=== PATIENT | female | born 1965 | race American Indian/Alaskan Native ===

== ENCOUNTER 2017-02-26 11:11 | Inpatient (IN) | payer MEDICAID ==
[2017-02-26 11:14] VITALS: BMI 23.3
--- NOTE | 2017-02-26 11:52 | C.PDOC ---
History Of Present Illness 51-year-old female, presents to the emergency department, pre-screened for detox from alcohol and crack. Patient denies any physical complaints at this time. Time Seen by Provider: 02/26/17 11:49 Chief Complaint (Nursing): Substance Abuse History Per: Patient History/Exam Limitations: no limitations Onset/Duration Of Symptoms: Days Current Symptoms Are (Timing): Still Present Past Medical History Reviewed: Historical Data, Nursing Documentation, Vital Signs Vital Signs: Last Vital Signs Temp 98.1 F 02/28/17 09:00 Pulse 86 02/28/17 09:00 Resp 18 02/28/17 09:00 BP 150/98 H 02/28/17 09:00 Pulse Ox 100 02/28/17 09:00 - Medical History PMH: HIV, HTN Denies: Diabetes, Hepatitis, Seizures, Sexually Transmitted Disease - [facility] Procedures DETOXIFICATION SERVICES FOR SUBSTANCE ABUSE TREATMENT (03/13/16) GROUP PSYCHOTHERAPY (03/13/16) Family History: States: Unknown Family Hx - Social History Hx Tobacco Use: Yes Hx Alcohol Use: Yes Hx Substance Use: Yes (cocaine) - Immunization History Hx Tetanus Toxoid Vaccination: No Hx Influenza Vaccination: No Hx Pneumococcal Vaccination: Yes Review Of Systems Except As Marked, All Systems Reviewed And Found Negative. Constitutional: Negative for: Fever, Chills Cardiovascular: Negative for: Chest Pain, Palpitations Respiratory: Negative for: Shortness of Breath Gastrointestinal: Negative for: Vomiting Physical Exam - Physical Exam Appears: Non-toxic, No Acute Distress Skin: Warm, Dry, No Rash Head: Atraumatic, Normacephalic Eye(s): bilateral: Normal Inspection Nose: Normal Oral Mucosa: Moist Lips: Normal Appearing Neck: Normal ROM Cardiovascular: Rhythm Regular Respiratory: Normal Breath Sounds, No Accessory Muscle Use Extremity: Normal ROM Neurological/Psych: Oriented x3, Normal Speech ED Course And Treatment - Laboratory Results Result Diagrams: 02/26/17 12:08 02/26/17 12:08 O2 Sat by Pulse Oximetry: 100 Disposition Counseled Patient/Family Regarding: Studies Performed, Diagnosis - Disposition Disposition: HOSPITALIZED Disposition Time: 13:09 Condition: GUARDED - Clinical Impression Clinical Impression: Drug dependence, Drug abuse - Scribe Statement The provider has reviewed the documentation as recorded by the Tamanna Hitchcock Provider Attestation: All medical record entries made by the Tamanna were at my direction and personally dictated by me. I have reviewed the chart and agree that the record accurately reflects my personal performance of the history, physical exam, medical decision making, and the department course for this patient. I have also personally directed, reviewed, and agree with the discharge instructions and disposition. Decision To Admit - Pt Status Changed To: Hospital Disposition Of: Inpatient - Admit Certification Admit to Inpatient:: After my assessment, the patient will require hospitalization for at least two midnights. This is because of the severity of symptoms shown, intensity of services needed, and/or the medical risk in this patient being treated as an outpatient. - InPatient: Physician Admission Certification: I certify that this patient requires 2 or more midnights of care for the following reason:: needs inpatient detox - . Bed Request Type: Detox Patient Diagnosis: Drug dependence, Drug abuse
[2017-02-26 12:16] LABS: BASO # 0.1 K/uL (0.0-0.2); BASO % 1.9 % (0.0-2.0); EOS % 0.5 % (0.0-4.0); HEMATOCRIT 39.5 % (34.0-47.0); LYMPH # 1.8 K/uL (1.0-4.3); LYMPH % 37.3 % (20.0-40.0); MEAN CELL VOLUME 84.5 fL (81.0-99.0); MEAN CORPUSCULAR HEMOGLOBIN 27.3 pg (27.0-31.0); MEAN CORPUSCULAR HGB CONC 32.3 g/dL (33.0-37.0); MEAN PLATELET VOLUME 10.9 fL (7.2-11.7); MONO # 0.4 K/uL (0.0-0.8); MONO % 7.9 % (0.0-10.0); RED CELL DISTRIBUTION WIDTH 13.1 % (11.5-14.5); WHITE BLOOD COUNT 4.8 K/uL (4.8-10.8)
[2017-02-26 12:21] LABS: URINE BILIRUBIN NEGATIVE (NEGATIVE); URINE BLOOD 1+ (NEGATIVE); URINE COLOR Colorless (YELLOW); URINE GLUCOSE (UA) NORMAL (Normal); URINE KETONE NEGATIVE (NEGATIVE); URINE LEUKOCYTE ESTERASE NEG Leu/uL (Negative); URINE PROTEIN NEGATIVE (NEGATIVE); URINE UROBILINOGEN NORMAL mg/dL (0.2-1.0)
[2017-02-26 12:22] LABS: CHLORIDE 103 mmol/L (98-107); POTASSIUM 3.2 mmol/L (3.6-5.2); SODIUM 144 mmol/L (132-148)
[2017-02-26 12:24] LABS: BILIRUBIN,TOTAL 0.4 mg/dL (0.2-1.3); CARBON DIOXIDE 22 mmol/L (22-30); GFR AFRICAN-AMERICAN > 60
[2017-02-26 12:25] LABS: ALB/GLOB RATIO 1.4 (1.0-2.1); ALKALINE PHOSPHATASE 109 U/L (38-126); ALT/SGPT 107 U/L (9-52); AST/SGOT 94 U/L (14-36); BLOOD UREA NITROGEN 13 mg/dL (7-17); CALCIUM 8.8 mg/dl (8.6-10.4); GLUCOSE,RANDOM 134 mg/dL (65-105); TOTAL PROTEIN 7.5 g/dL (6.3-8.3)
[2017-02-26 12:26] LABS: ALCOHOL SERUM 98 mg/dl (0-10)
[2017-02-26 12:28] LABS: RBC URINE 1 /hpf (0-3)
[2017-02-26] MEDS ORDERED: Potassium Chloride 20 mEq ER Tab PO STA (14:14)
[2017-02-26] MEDS: Multiple Vitamins Tab PO SCH (14:57)
[2017-02-26] MEDS: COMPLERA PO SCH (18:22)
[2017-02-27] MEDS: Multiple Vitamins Tab PO SCH (09:15)
[2017-02-27] MEDS: COMPLERA PO SCH (09:16)
[2017-02-27] MEDS ORDERED: Potassium Chloride 20 mEq ER Tab PO ONE (10:43)
[2017-02-27 13:04] VITALS: RESP 18
--- NOTE | 2017-02-27 15:30 | PCM.PSYCH ---
Initial Psychiatric Evaluation - Initial Psychiatric Evaluation Type of Admission: Voluntary Legal Status: Capacity Chief Complaint (in patient's own words): "Drinking problem and stress" Patient's Reaction to Hospitalization: Positive History of Present Illness and Precipitating Events: This is a 51 year old female. She is single and has 2 children , 9 and 13 years old. Currenlty, the patient is living with the father and the children. She is unemployed and supports herself through social security income. Patient reports an addiction to alcohol that has been going on and off since before 2002. Currently , she drinks 2 shots of Smirnoff a day with 2 to 3 beers a day as well. She admits to doing crack cocaine every other day and smokes 1 pack of cigarettes a day. This is currently her third time in detox unit. She has not been to rehab in the past. Her longest sobriety period was from 2002 to 2014. In 2009, she was given morphine due to migraine pain. This incident opened up her addiction. She entered a methadone program from 2009 to 2014, but was kicked out of the program. Patient does not recall reason. She started to drink heavily again thereafter. Her current plan is to attend a short term in patient program and to return home and be with her son for his surgery in April. Past Psych Hx: Depression, anxiety Fam Psych Hx: None Fam Drug Hx: Mother abuses alcohol, sister and brother drink heavily and do cocaine, older sister of heroin overdose PMH: hypertension Current Medications: Active Medications Generic Name Dose Route Start Last Admin Trade Name Freq PRN Reason Stop Dose Admin Clonidine HCl 0.1 mg 02/26/17 13:38 02/27/17 10:26 Catapres PO 0.1 mg Q4H PRN Administration Symptoms of alcohol withdrawl Folic Acid 1 mg 02/26/17 13:45 02/27/17 09:15 Folic Acid PO 1 mg DAILY ALEKSANDAR Administration Gabapentin 100 mg 02/26/17 14:00 02/27/17 13:23 Neurontin PO Not Given TID ALEKSANDAR Home Med 1 tab 02/26/17 16:00 02/27/17 09:16 Patient's Own Medication PO 1 tab DAILY ALEKSANDAR Administration Hydroxyzine HCl 25 mg 02/26/17 13:40 Atarax PO Q4H PRN Anxiety Ibuprofen 600 mg 02/26/17 13:40 Motrin Tab PO Q6H PRN Pain, moderate (4-7) Lorazepam 1 mg 02/26/17 13:38 Ativan PO Q4H PRN Symptoms of alcohol withdrawl Lorazepam 2 mg 02/26/17 13:45 02/27/17 13:22 Ativan PO 03/02/17 13:44 Not Given Q8H ALEKSANDAR Taper Multivitamins 1 tab 02/26/17 13:45 02/27/17 09:15 Hexavitamin PO 1 tab DAILY ALEKSANDAR Administration Nicotine 1 patch 02/27/17 10:00 02/27/17 09:26 Nicoderm Cq TD 1 patch DAILY ALEKSANDAR Administration Thiamine HCl 100 mg 02/26/17 13:45 02/27/17 09:15 Vitamin B1 Tab PO 100 mg DAILY ALEKSANDAR Administration Trazodone HCl 50 mg 02/26/17 13:38 Desyrel PO HS PRN Insomnia Past Psychiatric History - Past Psychiatric History Pertinent Medical Hx (Current Medical&Sleep Prob, Allergies): Allergies Allergy/AdvReac Type Severity Reaction Status Date / Time FISH Allergy RASH Verified 05/17/16 09:46 Emtricitab/Rilpivirine/Tenofov [Complera Tablet] 1 tab DAILY 03/13/16 traZODone [Desyrel] 50 mg PO HS PRN #30 tab 03/15/16 Review of Systems - Neurological Neurological: UNREMARKABLE - Psychiatric Psychiatric: Anxiety, Depression, Difficulty Concentrating Mental Status Examination - Personal Presentation Personal Presentation: Looks older than stated age, Dressed appropriate to season - Affect Affect: Depressed Additional comments: Crying - Motor Activity Motor Activity: Calm - Reliability in Providing Information Reliability in Providing Information: Fair - Speech Speech: Organized - Mood Mood: Depressed - Formal Thought Process Formal Thought Process: No Impairment - Obsessions/Compulsions Obsessions: No Compulsions: No - Cognitive Functions Orientation: Person, Place, Situation, Time Sensorium: Drowsy Attention/Concentration: Attentive Judgement: Intact, as evidence by: Insight regarding need for hospitalization Memory: Recent intact, as evidence by: Ability to recall events of the day - Risk Risk: Withdrawal DSM 5 DX - DSM 5 DSM 5 Diagnosis: Alcohol withdrawal Alcohol use disorder-severe Cocaine use disorder-moderate Nicotine use disorder-severe - Recommended/Plan of Treatment Treatment Recommendations and Plan of Treatment: Alcohol Lorazepam taper Thiamine 100 mg PO daily Folic acid 1 mg PO daily Gabapentin 100 mg PO TID Multivitamins 1 tab daily As needed meds Attend groups and activities [place]/CBT Support and Psychoeducation Refer to program Cocaine [place] for abstinence Nicotine Nicotine Patch 33 min Projected ELOS: 3 days - Smoking Cessation Smoking Cessation Initiated: Yes
[2017-02-28] MEDS: COMPLERA PO SCH (09:08)
[2017-02-28] MEDS: Multiple Vitamins Tab PO SCH (09:09)
[2017-02-28] MEDS ORDERED: Potassium Chloride 20 mEq ER Tab PO ONE (10:00)
--- NOTE | 2017-02-28 11:13 | PCM.PYCHPN ---
Psychiatric Progress Note - Psychiatric Progress Note Patient seen today, length of contact: 16 minutes Patient Chief Complaint: "I'm doing a lot better" Problems Identified/Issues Discussed: Pt seen, chart reviewed, and case discussed with staff. Pt is complaint with medication. Reports feeling much better today. Drowsiness has decreased since yesterday and pt feels much more steady on her feet. Pt slept throughout the night. Denies nausea, vomiting, abdominal pain, fever, chills, diaphoresis, agitation, suicidal ideation, homicidal ideation, and hallucinations. Pt's plan remains to attend a short term inpatient rehab, possibly [facility] or [facility]. Psychoeducation and support given. Medication Change: Yes (Ativan taper, HCTZ) Medical Record Reviewed: Yes Mental Status Examination - Cognitive Function Orientation: Person, Place, Situation, Time Memory: Intact Attention: WNL Concentration: WNL Association: WNL Fund of Knowledge: WNL - Mood Mood: Depressed (but improved from yesterday) - Affect Affect: Depressed - Speech Speech: Appropriate - Formal Thought Process Formal Thought Process: No Impairment - Suicidal Ideation Suicidal Ideation: No - Homicidal Ideation Homicidal Ideation: No Goal/Treatment Plan - Goal/Treatment Plan Need for Continued Stay: Remain at risks for inpatient hospitalization, Discharge may exacerbated symptoms Progress Toward Problem(s) and Goals/Treatment Plan: Alcohol -Lorazepam taper -Thiamine 100 mg PO daily -Folic acid 1 mg PO daily -Gabapentin 100 mg PO TID -Multivitamins 1 tab daily -As needed meds -Attend groups and activities -[place]/CBT -Support and Psychoeducation -Refer to program Cocaine -[place] for abstinence Nicotine -Nicotine Patch
[2017-02-28 11:23] LABS: CHLORIDE 98 mmol/L (98-107); POTASSIUM 4.7 mmol/L (3.6-5.2); SODIUM 140 mmol/L (132-148)
[2017-02-28 11:25] LABS: BILIRUBIN,TOTAL 0.3 mg/dL (0.2-1.3); CARBON DIOXIDE 27 mmol/L (22-30); GFR AFRICAN-AMERICAN > 60
[2017-02-28 11:26] LABS: ALB/GLOB RATIO 1.3 (1.0-2.1); ALKALINE PHOSPHATASE 106 U/L (38-126); ALT/SGPT 74 U/L (9-52); AST/SGOT 55 U/L (14-36); BLOOD UREA NITROGEN 12 mg/dL (7-17); CALCIUM 9.3 mg/dl (8.6-10.4); GLUCOSE,RANDOM 82 mg/dL (65-105); TOTAL PROTEIN 8.4 g/dL (6.3-8.3)
--- NOTE | 2017-03-01 08:41 | PCM.PYCHDC ---
Mental Status Examination - Mental Status Examination Orientation: Person, Place, Situation, Time Memory: Intact Mood: Other (Appropriate) Affect: Broad Speech: Appropriate Attention: WNL Concentration: WNL Association: WNL Fund of Knowledge: WNL Formal Thought Process: No Impairment Suicidal Ideation: No Current Homicidal Ideation?: No Discharge Summary - Discharge Note Reason for Hospitalization: Alcohol withdrawal Laboratory Data: Abnormal Lab Results 02/28/17 10:43 Sodium 140 Potassium 4.7 Chloride 98 Carbon Dioxide 27 Anion Gap 20 BUN 12 Creatinine 0.9 Est GFR ( Amer) > 60 Est GFR (Non-Af Amer) > 60 Random Glucose 82 Calcium 9.3 Total Bilirubin 0.3 AST 55 H D ALT 74 H D Alkaline Phosphatase 106 Total Protein 8.4 H Albumin 4.7 Globulin 3.7 Albumin/Globulin Ratio 1.3 Consultations:: List each consultation separately and include: 1. Reason for request. 2. Findings. 3. Follow-up Summary of Hospital Course include:: 1. Description of specific treatment plan utilized for patients during their course of treatmen. 2. Summarize the time- course for resolution of acute symptoms and/or regressed behaviors. 3. Describe issues identified and worked on during hospitalization. 4. Describe medication utilized. 5. Describe medical problems identified and treated. 6. Reassessment of suicide risk Summary of Hospital Course: This is a 51 year old female. She is single and has 2 children , 9 and 13 years old. Currently, the patient is living with the father and the children. She is unemployed and supports herself through social security income. Patient reports an addiction to alcohol that has been going on and off since before 2002. Currently , she drinks 2 shots of Smirnoff a day with 2 to 3 beers a day as well. She admits to doing crack cocaine every other day and smokes 1 pack of cigarettes a day. This is currently her third time in detox unit. She has not been to rehab in the past. Her longest sobriety period was from 2002 to 2014. In 2009, she was given morphine due to migraine pain. This incident opened up her addiction. She entered a methadone program from 2009 to 2014, but was kicked out of the program. Patient does not recall reason. She started to drink heavily again thereafter. Her current plan is to attend a short term in patient program and to return home and be with her son for his surgery in April. Past Psych Hx: Depression, anxiety Fam Psych Hx: None Fam Drug Hx: Mother abuses alcohol, sister and brother drink heavily and do cocaine, older sister of heroin overdose PMH: hypertension, HIV HOSPITAL COURSE: Pt was seen, chart reviewed, and case discussed with staff Pt feels much better and is ready for discharge. Pt will attend [facility] ([facility]) in [place]. Attended groups and activities [place], CBT used Ativan detox completed Responded well to treatment, however, she was ambivalent about after care; she started with LT rehab, then St and then finally only IOP. She almost sabotaged her interview with [facility]. To her defense, she claimed, her son needs an operation on 04/25 and that she cannot do LT rehab bc of that (and [facility] did not offer [facility]) - Final Diagnosis (DSM 5) Condition upon Discharge: IMPROVED DSM 5: Alcohol Withdrawal Alcohol use disorder-severe Cocaine use disorder-moderate Nicotine use disorder-severe Disposition: HOME/ ROUTINE Follow-up Treatment Plan: Continue below medications Attend aftercare: [facility] Use relapse prevention skills Attend AA Return to ER if experience suicidal ideation, homicidal ideation, or agitation. Prescriptions/Medication Reconciliation: Losartan [Cozaar] 100 mg PO DAILY #30 tab traZODone [Desyrel] 50 mg PO HS PRN #30 tab PRN Reason: Insomnia Gabapentin [Neurontin] 300 mg PO BID #60 cap - Smoking Cessation Smoking Cessation Medication prescribed: No - Antipsychotic Medications Pt discharged on 2 or more routine antipsychotic medications: No
[2017-03-01 08:58] VITALS: BP 147/90; PULSE 89; TEMP 98; O2SAT 99
[2017-03-01] MEDS: COMPLERA PO SCH (09:36)
[2017-03-01] MEDS: Multiple Vitamins Tab PO SCH (09:37)
== END 2017-03-01 10:30 | disposition home or self-care (01) | DRG 715 ==
LOC: C.ER 11:11 → C.7D 13:10
PROVIDERS: ADMIT Psychiatry & Neurology Psychiatry; ATTEND Psychiatry & Neurology Psychiatry
PROC: HZ2ZZZZ Detoxification Services for Substance Abuse Treatment (ICD-10-PCS; principal; 2017-02-27)
PROC: HZ42ZZZ Group Counseling for Substance Abuse Treatment, Cognitive-Behavioral (ICD-10-PCS; 2017-02-27)
PROC: HZ46ZZZ Group Counseling for Substance Abuse Treatment, Psychoeducation (ICD-10-PCS; 2017-02-27)
PROC: HZ59ZZZ Individual Psychotherapy for Substance Abuse Treatment, Supportive (ICD-10-PCS; 2017-02-27)
DX: F10.230 Alcohol dependence with withdrawal, uncomplicated (principal); Z21 Asymptomatic human immunodeficiency virus [HIV] infection status; I10 Essential (primary) hypertension; F14.90 Cocaine use, unspecified, uncomplicated; F32.9 Major depressive disorder, single episode, unspecified; F41.9 Anxiety disorder, unspecified; Y90.4 Blood alcohol level of 80-99 mg/100 ml; F17.210 Nicotine dependence, cigarettes, uncomplicated

== ENCOUNTER 2018-04-21 17:13 | Inpatient (IN) | payer MEDICAID ==
[2018-04-21 17:13] VITALS: BMI 23.3
[2018-04-21 18:11] LABS: BASO # 0.1 K/uL (0.0-0.2); BASO % 1.4 % (0.0-2.0); EOS % 0.5 % (0.0-4.0); LYMPH # 1.7 K/uL (1.0-4.3); MEAN CELL VOLUME 83.3 fL (81.0-99.0); MEAN CORPUSCULAR HEMOGLOBIN 28.3 pg (27.0-31.0); MEAN PLATELET VOLUME 10.8 fL (7.2-11.7); MONO # 0.6 K/uL (0.0-0.8); MONO % 8.8 % (0.0-10.0); NEUT % 62.3 % (50.0-75.0); RBC 4.6 Mil/uL (3.80-5.20); WHITE BLOOD COUNT 6.4 K/uL (4.8-10.8)
[2018-04-21 18:12] LABS: HCG,QUALITATIVE URINE NEGATIVE (NEGATIVE)
[2018-04-21 18:13] LABS: SQUAMOUS EPITHIAL 4 /hpf (0-5); URINE BILIRUBIN NEGATIVE (NEGATIVE); URINE BLOOD NEGATIVE (NEGATIVE); URINE CLARITY Clear (Clear); URINE COLOR Yellow (YELLOW); URINE GLUCOSE (UA) NORMAL (Normal); URINE LEUKOCYTE ESTERASE NEG Leu/uL (Negative); URINE PROTEIN NEGATIVE (NEGATIVE); URINE UROBILINOGEN NORMAL mg/dL (0.2-1.0)
[2018-04-21 18:24] LABS: ALB/GLOB RATIO 1.2 (1.0-2.1); ALBUMIN 4.3 g/dL (3.5-5.0); ALT/SGPT 36 U/L (9-52); AST/SGOT 39 U/L (14-36); BLOOD UREA NITROGEN 9 mg/dL (7-17); CALCIUM 9.2 mg/dl (8.6-10.4); GFR AFRICAN-AMERICAN > 60; GFR NON-AFRICAN AMERICAN > 60
[2018-04-21 18:40] LABS: BARBITURATES, UR NEGATIVE (NEGATIVE); BENZODIAZEPINES, UR NEGATIVE (NEGATIVE); PHENCYCLIDINE, UR NEGATIVE (NEGATIVE)
[2018-04-21 18:43] LABS: OPIATES, UR POSITIVE (NEGATIVE)
--- NOTE | 2018-04-21 19:01 | C.PDOC ---
History Of Present Illness 53 year old female with PMH HIV presents to the ED requesting alcohol and heroin detox. Patient states her last drink and heroin use were one hour ago, respectively. Patient denies suicidal/homicidal ideation or any other drug use at this time. Time Seen by Provider: 04/21/18 17:27 Chief Complaint (Nursing): Substance Abuse History Per: Patient History/Exam Limitations: no limitations Onset/Duration Of Symptoms: Hrs Current Symptoms Are (Timing): Still Present Suicide/Self Injury Attempted (Context): None Modifying Factor(s): Alcohol, Narcotics (heroin ) Associated Symptoms: denies: Suicidal Thoughts, Suicidal Plan Involuntary Hold By: None Recent travel outside of the [place]: No Additional History Per: Patient Past Medical History Reviewed: Historical Data, Nursing Documentation, Vital Signs Vital Signs: Last Vital Signs Temp 97.9 F 04/21/18 19:39 Pulse 71 04/21/18 19:39 Resp 18 04/21/18 19:39 BP 160/96 H 04/21/18 19:39 Pulse Ox 100 04/21/18 19:39 - Medical History PMH: Anxiety, HIV, HTN Surgical History: No Surg Hx - [facility] Procedures DETOXIFICATION SERVICES FOR SUBSTANCE ABUSE TREATMENT (02/26/17) GROUP WEB MASTER FOR SUBSTANCE ABUSE TREATMENT, PSYCHOEDUCATION (02/26/17) GROUP WEB MASTER FOR SUBSTANCE ABUSE, COGNITIVE BEHAVIORAL (02/26/17) GROUP PSYCHOTHERAPY (03/13/16) INDIV PSYCHOTHERAPY FOR SUBSTANCE ABUSE TREATMENT, SUPPORT (02/26/17) Family History: States: Unknown Family Hx - Social History Hx Tobacco Use: Yes Hx Alcohol Use: Yes Hx Substance Use: Yes (cocaine) - Immunization History Hx Tetanus Toxoid Vaccination: No Hx Influenza Vaccination: No Hx Pneumococcal Vaccination: Yes Review Of Systems Psych: Positive for: Other (alcohol and heroin detox ). Negative for: Suicidal ideation Physical Exam - Physical Exam Appears: Non-toxic, No Acute Distress Skin: Normal Color, Warm, Dry Head: Atraumatic, Normacephalic Eye(s): bilateral: Normal Inspection Oral Mucosa: Moist, Other (alcohol on breath ) Neck: Supple Chest: Symmetrical, No Deformity, No Tenderness Cardiovascular: Rhythm Regular, No Murmur Respiratory: Normal Breath Sounds, No Rales, No Rhonchi, No Wheezing Extremity: Bilateral: Atraumatic, Normal Color And Temperature, Normal ROM Neurological/Psych: Oriented x3, Normal Speech Gait: Steady ED Course And Treatment - Laboratory Results Result Diagrams: 04/21/18 18:05 04/21/18 18:05 O2 Sat by Pulse Oximetry: 98 (on RA) Pulse Ox Interpretation: Normal Medical Decision Making Medical Decision Making: Impression: 53 year old female requesting alcohol and heroin detox Plan: * Bloodwork * urinalysis * Nicotine TD * crisis evaluation Progress: Labs ordered and reviewed. In my clinical judgment patient is medically cleared and stable for psychiatric admission. Nicotine TD administered. Patient evaluated by wafer line worker. As per CW patient is to be admitted. Disposition - Disposition Disposition: HOSPITALIZED Disposition Time: 19:50 Condition: STABLE - POA Present On Arrival: None - Clinical Impression Clinical Impression: Opiate use, Alcohol abuse - PA / GENERAL REPAIR MECHANIC / Resident Statement MD/DO has reviewed & agrees with the documentation as recorded. - Scribe Statement The provider has reviewed the documentation as recorded by the Scribe (Mayuri Tariq) All medical record entries made by the Scribe were at my direction and personally dictated by me. I have reviewed the chart and agree that the record accurately reflects my personal performance of the history, physical exam, medical decision making, and the department course for this patient. I have also personally directed, reviewed, and agree with the discharge instructions and disposition. Decision To Admit - Pt Status Changed To: Hospital Disposition Of: Inpatient - Admit Certification Admit to Inpatient:: After my assessment, the patient will require hospitalization for at least two midnights. This is because of the severity of symptoms shown, intensity of services needed, and/or the medical risk in this patient being treated as an outpatient. - InPatient: Physician Admission Certification: I certify that this patient requires 2 or more midnights of care for the following reason:: Patient accepted for detox of opiate and alcohol abuse - . Bed Request Type: Detox Admitting Physician: Hedy Izquierdo Patient Diagnosis: Opiate use, Alcohol abuse
--- NOTE | 2018-04-21 20:14 | PCM.BM ---
<Aliya Mckeon - Last Filed: 04/21/18 20:13> Treatment Plan Problems - Problems identified on initial assessmt potiential for opiate withdrawal Date Initiated: 04/21/18 Time Initiated: 20:13 Assessment reference: NA Status: Active Treatment assets and liabiliti Patient Assests: ADL independent Patient Liabilities: substance abuse, medical problems - Milieu Protocol Maintain good personal hygiene: daily Encourage regular showers, daily Remind patient to perform daily oral care, daily Assist patient to perform ADL's Maintain personal safety: every shift Educate patient to report safety concerns to staff, every shift Monitor environment for contraband/sharps Medication safety: Monitor for expected outcome, potential side effects: every shift, Assess barriers to learning: every shift, Assess readiness for medication education: every shift <Emilia Floyd - Last Filed: 04/22/18 18:32> - Diagnosis (1) Opioid use disorder, severe, dependence Status: Acute Interventions: 04/22/18 18:33 * Assess 7x/week regarding severity of withdrawal * Educate regarding risks, benefits, side effects and alternatives of medications * Use Motivational Interviewing for abstinence * Use CBT for relapse prevention * Medication management for withdrawal symptoms * Encourage medication assisted treatment * (2) Alcohol use disorder, severe, dependence Status: Acute Interventions: 04/22/18 18:33 * Assess 7x/week regarding severity of withdrawal * Educate regarding risks, benefits, side effects and alternatives of medications * Use Motivational Interviewing for abstinence * Use CBT for relapse prevention * Medication management for withdrawal symptoms * Encourage medication assisted treatment * <Rosalinda Juan - Last Filed: 04/24/18 10:09> Family Contact Family involvement: Famliy/SO not involved - Goals for Treatment Patient goals for treatment: Complete detox and transtion to IOP. Discharge/Continuing Care - Education Needs Education Needs: Patient Medication, Patient Diagnosis/Disease Process, Patient Coping Skills, Patient Anger Management skills, Patient Placement options, Patient Community resources, Significant Other Medication, Significant Other Diagnosis/Disease Process, Significant Other Coping Skills, Significant Other Anger Management skills, Significant Other Placement options, Significant Other Community resources - Discharge Discharge Criteria: No longer exhibiting s/s of withdrawal, Reduction of target symptoms Discharge to:: Home - Treatment Team Participation Patient/Family/SO Statement: 04/24/18 10:09 "I wanna go to [facility] from here..." Discussed with Family/SO: No Was Patient/Family/SO present at Treatment Team Meeting: Yes
[2018-04-22] MEDS: Multiple Vitamins Tab PO SCH (09:31)
[2018-04-22] MEDS: COMPLERA PO SCH (11:11)
--- NOTE | 2018-04-22 14:24 | PCM.PSYCH ---
Initial Psychiatric Evaluation - Initial Psychiatric Evaluation Type of Admission: Voluntary Legal Status: Capacity Chief Complaint (in patient's own words): "I am not well" History of Present Illness and Precipitating Events: Patient is a 53 year old female with past medical history of HIV presents to the ED requesting alcohol and heroin detox. Patient states her last drink and heroin use were one hour before admission. Patient denies suicidal/homicidal ideation or any other drug use at this time. She is single and has 2 children, 9 and 13 years old. Currently patient is living alone. She is unemployed and supports herself through social security income. Patient reports an addiction to alcohol that has been going on and off since before 2002. Currently she drinks a 6 pack of beer everyday. Patient also smokes 1 pack of cigarettes a day. She uses heroin intranasally for the past 4 months, 4-5 bags a day. She was previously admitted for alcohol and heroin detox 1.5 years ago. After discharge, patient went to [facility]. She did well there and wants to go back. After finishing her rehabilitation there, she relapsed. Patient denies feelings of depression. Patient reports past psychiatric history of Depression and Anxiety. Patient denies hallucinations, auditory or tactile, and denies any manic feelings. Past Psych History: Depression, Anxiety PMHx: Hypertension Family Hx: Denies Allergies: Seafood Current Medications: Active Medications Generic Name Dose Route Start Last Admin Trade Name Freq PRN Reason Stop Dose Admin Chlordiazepoxide 25 mg 04/21/18 21:09 Librium PO Q4H PRN Alcohol Withdrawal Chlordiazepoxide 25 mg 04/22/18 00:22 04/22/18 12:56 Librium PO 04/26/18 23:59 25 mg Q6 ALEKSANDAR Administration Taper Clonidine HCl 0.1 mg 04/21/18 21:08 04/22/18 09:31 Catapres PO 0.1 mg Q6 PRN Administration hypertension Folic Acid 1 mg 04/22/18 10:00 04/22/18 09:31 Folic Acid PO 1 mg DAILY ALEKSANDAR Administration Home Med 1 tab 04/22/18 10:00 04/22/18 11:11 Patient's Own Medication PO 1 tab DAILY ALEKSANDAR Administration Losartan Potassium 100 mg 04/22/18 10:00 04/22/18 11:10 Cozaar PO 100 mg DAILY ALEKSANDAR Administration Methadone HCl 15 mg 04/22/18 10:00 04/22/18 09:31 Methadone PO 04/25/18 09:59 15 mg DAILY ALEKSANDAR Administration Taper Multivitamins 1 tab 04/22/18 10:00 04/22/18 09:31 Hexavitamin PO 1 tab DAILY ALEKSANDAR Administration Nicotine 1 patch 04/22/18 10:00 04/22/18 11:11 Nicoderm Cq TD 1 patch DAILY ALEKSANDAR Administration Thiamine HCl 100 mg 04/22/18 10:00 04/22/18 09:31 Vitamin B1 Tab PO 100 mg DAILY ALEKSANDAR Administration Trazodone HCl 50 mg 04/21/18 21:07 04/21/18 21:14 Desyrel PO 50 mg HS PRN Administration insomnia Past Psychiatric History - Past Psychiatric History Previous Treatment History: None Pertinent Medical Hx (Current Medical&Sleep Prob, Allergies): Allergies Allergy/AdvReac Type Severity Reaction Status Date / Time FISH Allergy RASH Verified 04/21/18 17:20 seafood Allergy Uncoded 04/21/18 17:20 Emtricita/Rilpivirine/Tenof Df [Complera Tablet] 1 tab DAILY 03/13/16 Losartan [Cozaar] 100 mg PO DAILY #30 tab 03/01/17 Review of Systems - Review of Systems All systems: reviewed and no additional remarkable complaints except - Neurological Neurological: UNREMARKABLE - Psychiatric Psychiatric: Abnormal Sleep Pattern, Anxiety. absent: Auditory Hallucinations, Depression, Difficulty Concentrating, Suicidal Ideation, Visual Hallucinations, Tactile Hallucinations Mental Status Examination - Personal Presentation Personal Presentation: Looks stated age - Affect Affect: Constricted - Motor Activity Motor Activity: Calm - Reliability in Providing Information Reliability in Providing Information: Good - Speech Speech: Organized - Mood Mood: Neutral - Formal Thought Process Formal Thought Process: No Impairment - Cognitive Functions Orientation: Person, Place, Situation, Time Sensorium: Alert Attention/Concentration: Attentive Estimate of Intelligence: Average Judgement: Intact, as evidence by: Insight regarding need for hospitalization Memory: Recent intact, as evidence by: Ability to recall events of the day, Remote intact, as evidenced by: Abilit to recall sig. life events - Risk Risk: Withdrawal, Diminished functioning - Strength & Assets Inventory Strength & Assets Inventory: Cooperative - Limitations Limitations: Living alone DSM 5 DX - DSM 5 DSM 5 Diagnosis: Opioid Withdrawal Opioid Use Disorder, severe Alcohol Use Disorder, Severe Tobacco Use Disorder, Moderate - Recommended/Plan of Treatment Treatment Recommendations and Plan of Treatment: Methadone Detox Librium detox PRN Catapres, Folic Acid, Cozaar, Librium, Multivitamins, Nicoderm, Vitamin B1, Trazodone Attend groups and activities Supportive therapy and psychoeducation [place] for abstinence CBT for relapse prevention Encourage MAT Refer to rehab or IOP Attend self-help groups as well 33 min Projected ELOS: 4-5 days Prognosis: good w treatment - Smoking Cessation Smoking Cessation Initiated: Yes
[2018-04-23] MEDS: COMPLERA PO SCH (09:18)
[2018-04-23] MEDS: Multiple Vitamins Tab PO SCH (09:19)
--- NOTE | 2018-04-23 14:17 | PCM.PYCHPN ---
Psychiatric Progress Note - Psychiatric Progress Note Patient seen today, length of contact: 18 min Patient Chief Complaint: "I am getting better" Problems Identified/Issues Discussed: Patient is seen and evaluated, chart reviewed and discussed with the nurse. Patient reports she is currently having no withdrawal symptoms. She reports good sleep, good mood, and eating well. Patient will be discharged tomorrow and is aware of her treatment plan of going to [facility]. Patient continues to participate in group activities. Patient is compliant with medications and reports no side effects. Supportive therapy and psycho education was given. After care discussed. She will go to an IOP and Sbx dr She tried to AMA twice today and stayed each time, understanding the need to complete it Medication Change: Yes (detox changes daily) Medical Record Reviewed: Yes Mental Status Examination - Cognitive Function Orientation: Person, Place, Situation, Time Memory: Intact Attention: WNL Concentration: WNL - Mood Mood: Neutral - Affect Affect: Broad - Speech Speech: Appropriate - Formal Thought Process Formal Thought Process: No Impairment - Suicidal Ideation Suicidal Ideation: No - Homicidal Ideation Homicidal Ideation: No Goal/Treatment Plan - Goal/Treatment Plan Need for Continued Stay: Discharge may exacerbated symptoms, Severe functional impairment Progress Toward Problem(s) and Goals/Treatment Plan: Methadone Detox Librium detox Continue as needed medications Attend groups and activities Supportive therapy and psychoeducation [place] for abstinence CBT for relapse prevention Encourage MAT Refer to rehab or IOP Attend self-help groups as well
--- NOTE | 2018-04-24 08:45 | PCM.PYCHDC ---
Mental Status Examination - Mental Status Examination Orientation: Person, Place, Situation, Time Memory: Intact Mood: Anxious Affect: Constricted Speech: Appropriate Attention: WNL Concentration: WNL Association: WNL Fund of Knowledge: WNL Formal Thought Process: No Impairment Suicidal Ideation: No Current Homicidal Ideation?: No Discharge Summary - Discharge Note Reason for Hospitalization: Opioid detox Consultations:: List each consultation separately and include: 1. Reason for request. 2. Findings. 3. Follow-up Summary of Hospital Course include:: 1. Description of specific treatment plan utilized for patients during their course of treatmen. 2. Summarize the time- course for resolution of acute symptoms and/or regressed behaviors. 3. Describe issues identified and worked on during hospitalization. 4. Describe medication utilized. 5. Describe medical problems identified and treated. 6. Reassessment of suicide risk Summary of Hospital Course: She is seen, chart reviewed and case discussed On admission: Patient is a 53 year old female with past medical history of HIV presents to the ED requesting alcohol and heroin detox. Patient states her last drink and heroin use were one hour before admission. Patient denies suicidal/homicidal ideation or any other drug use at this time. She is single and has 2 children, 9 and 13 years old. Currently patient is living alone. She is unemployed and supports herself through social security income. Patient reports an addiction to alcohol that has been going on and off since before 2002. Currently she drinks a 6 pack of beer everyday. Patient also smokes 1 pack of cigarettes a day. She uses heroin intranasally for the past 4 months, 4-5 bags a day. She was previously admitted for alcohol and heroin detox 1.5 years ago. After discharge, patient went to [facility]. She did well there and wants to go back. After finishing her rehabilitation there, she relapsed. Patient denies feelings of depression. Patient reports past psychiatric history of Depression and Anxiety. Patient denies hallucinations, auditory or tactile, and denies any manic feelings. Past Psych History: Depression, Anxiety PMHx: Hypertension Family Hx: Denies Allergies: Seafood Hospital course: The pt was admitted and started on treatment with psychotherapy, support, psychoeducation and medications. CA and CBT used. The pt attended groups and activities, as well as milieu therapy. All the risks and benefits of medications are discussed and the patient understood and agreed. The pt improved with the treatments provided. After care discussed with the patient. She will go to [facility] IOP and consider suboxone tx. She tried to AMA twice and had a BF, who was 30 years younger, on the unit - but she denied being BF/GF - Final Diagnosis (DSM 5) Condition upon Discharge: STABLE DSM 5: Opioid Withdrawal Opioid Use Disorder, severe Alcohol Use Disorder, Severe Tobacco Use Disorder, Moderate Disposition: HOME/ ROUTINE Follow-up Treatment Plan: Continue below medications after discharge. Follow after care plan as discussed. Use relapse prevention skills Return to ER or call 911 if suicidal, homicidal or symptoms relapse. Stay away from stress, alcohol and drugs. See primary doctor regularly and get labs. Prescriptions/Medication Reconciliation: Losartan [Cozaar] 100 mg PO DAILY #30 tab traZODone [Desyrel] 50 mg PO HS PRN #30 tab PRN Reason: insomnia - Smoking Cessation Smoking Cessation Medication prescribed: No - Antipsychotic Medications Pt discharged on 2 or more routine antipsychotic medications: No
[2018-04-24] MEDS: COMPLERA PO SCH (09:12)
[2018-04-24] MEDS: Multiple Vitamins Tab PO SCH (09:13)
[2018-04-24 10:15] VITALS: BP 141/91; PULSE 70; RESP 19; TEMP 97.7; O2SAT 100
== END 2018-04-24 09:45 | disposition home or self-care (01) | DRG 715 ==
LOC: C.ER 17:13 → C.7D 19:53
PROVIDERS: ADMIT Psychiatry & Neurology Psychiatry; ATTEND Psychiatry & Neurology Psychiatry
PROC: HZ2ZZZZ Detoxification Services for Substance Abuse Treatment (ICD-10-PCS; principal; 2018-04-21)
PROC: HZ59ZZZ Individual Psychotherapy for Substance Abuse Treatment, Supportive (ICD-10-PCS; 2018-04-21)
PROC: HZ46ZZZ Group Counseling for Substance Abuse Treatment, Psychoeducation (ICD-10-PCS; 2018-04-21)
PROC: HZ90ZZZ Pharmacotherapy for Substance Abuse Treatment, Nicotine Replacement (ICD-10-PCS; 2018-04-21)
PROC: HZ91ZZZ Pharmacotherapy for Substance Abuse Treatment, Methadone Maintenance (ICD-10-PCS; 2018-04-21)
PROC: HZ99ZZZ Pharmacotherapy for Substance Abuse Treatment, Other Replacement Medication (ICD-10-PCS; 2018-04-21)
DX: F11.23 Opioid dependence with withdrawal (principal); F10.20 Alcohol dependence, uncomplicated; F17.210 Nicotine dependence, cigarettes, uncomplicated; Z21 Asymptomatic human immunodeficiency virus [HIV] infection status; I10 Essential (primary) hypertension; Z91.013 Allergy to seafood

== ENCOUNTER 2018-10-29 15:39 | Inpatient (IN) | payer MEDICAID ==
[2018-10-29 15:51] VITALS: BMI 23.4
[2018-10-29 16:42] LABS: BASO % 0.8 % (0.0-2.0); EOS % 0.2 % (0.0-4.0); LYMPH # 1.4 K/uL (1.0-4.3); LYMPH % 26.4 % (20.0-40.0); MEAN CELL VOLUME 82.3 fL (81.0-99.0); MEAN CORPUSCULAR HGB CONC 32.8 g/dL (33.0-37.0); MEAN PLATELET VOLUME 10.5 fL (7.2-11.7); MONO # 0.5 K/uL (0.0-0.8); MONO % 9.6 % (0.0-10.0); NEUT # 3.4 K/uL (1.8-7.0); NRBC % 0.1 % (0.0-2.0); RBC 5.59 Mil/uL (3.80-5.20); RED CELL DISTRIBUTION WIDTH 13.7 % (11.5-14.5); WHITE BLOOD COUNT 5.4 K/uL (4.8-10.8)
[2018-10-29 16:44] LABS: HEMOGLOBIN 15.1 g/dL (11.0-16.0)
[2018-10-29 17:01] LABS: BLOOD UREA NITROGEN 8 mg/dL (7-17); CALCIUM 9.4 mg/dl (8.6-10.4); GFR NON-AFRICAN AMERICAN > 60
[2018-10-29 17:05] LABS: ALB/GLOB RATIO 1.1 (1.0-2.1); ALBUMIN 4.8 g/dL (3.5-5.0); ALT/SGPT 25 U/L (9-52); AST/SGOT 57 U/L (14-36)
--- NOTE | 2018-10-29 17:18 | C.PDOC ---
History Of Present Illness 53 y/o female brought to ER by EMS for methadone withdrawal symptoms. Patient is complaining of body aches and chills. Patient states that she was in a methadone program. However, she was removed from the program because she did not have regular attendance. Patient reports that she last used methadone 4 day ago. Denies having fever, vomiting, diarrhea, dysuria and hematuria. Time Seen by Provider: 10/29/18 15:55 Chief Complaint (Nursing): Substance Abuse History Per: Patient History/Exam Limitations: no limitations Onset/Duration Of Symptoms: Days Current Symptoms Are (Timing): Still Present Severity: Moderate Past Medical History Reviewed: Historical Data, Nursing Documentation, Vital Signs Vital Signs: Last Vital Signs Temp 97.9 F 10/29/18 15:48 Pulse 76 10/29/18 15:48 Resp 16 10/29/18 15:48 BP 166/93 H 10/29/18 15:48 Pulse Ox 100 10/29/18 15:48 - Medical History PMH: Anxiety, HIV, HTN Denies: Diabetes, Hepatitis, Chronic Kidney Disease, Seizures, Sexually Transmitted Disease Other Surgeries: Hx of surgeries - [facility] Procedures DETOXIFICATION SERVICES FOR SUBSTANCE ABUSE TREATMENT (04/21/18) GROUP SCANNER SUPERVISOR FOR SUBSTANCE ABUSE TREATMENT, PSYCHOEDUCATION (04/21/18) GROUP SCANNER SUPERVISOR FOR SUBSTANCE ABUSE, COGNITIVE BEHAVIORAL (02/26/17) GROUP PSYCHOTHERAPY (03/13/16) INDIV PSYCHOTHERAPY FOR SUBSTANCE ABUSE TREATMENT, SUPPORT (04/21/18) PHARMACOTHERAPY FOR SUBSTANCE ABUSE, METHADONE MAINT (04/21/18) PHARMACOTHERAPY FOR SUBSTANCE ABUSE, NICOTINE REPLACE (04/21/18) PHARMACOTHERAPY FOR SUBSTANCE ABUSE, OTH REPLACE MED (04/21/18) Family History: States: No Known Family Hx - Social History Hx Tobacco Use: Yes Hx Alcohol Use: Yes Hx Substance Use: Yes - Immunization History Hx Tetanus Toxoid Vaccination: No Hx Influenza Vaccination: No Hx Pneumococcal Vaccination: Yes Review Of Systems Except As Marked, All Systems Reviewed And Found Negative. Constitutional: Positive for: Chills, Malaise. Negative for: Fever Gastrointestinal: Negative for: Nausea, Vomiting, Abdominal Pain, Diarrhea Physical Exam - Physical Exam Appears: Non-toxic, No Acute Distress Skin: Normal Color, Warm, Dry Head: Atraumatic, Normacephalic Eye(s): bilateral: Normal Inspection Nose: Normal Oral Mucosa: Moist Throat: Normal, No Erythema, No Exudate Neck: Supple Chest: Symmetrical Cardiovascular: Rhythm Regular Respiratory: Normal Breath Sounds, No Rales, No Rhonchi, No Wheezing Neurological/Psych: Oriented x3, Normal Speech ED Course And Treatment - Laboratory Results Result Diagrams: 10/29/18 16:38 10/29/18 16:38 Lab Interpretation: Abnormal (UDS positive opiates, methadone, cocaine,) O2 Sat by Pulse Oximetry: 100 (RA) Pulse Ox Interpretation: Normal Progress Note: Patient is medically cleared for detox admission. Medical Decision Making Medical Decision Making: Plan: --Labs --UA Disposition - Disposition Disposition: HOSPITALIZED Disposition Time: 19:07 Condition: STABLE - POA Present On Arrival: None - Clinical Impression Clinical Impression: Opioid use disorder, severe, dependence - Scribe Statement The provider has reviewed the documentation as recorded by the Tamanna López Provider Attestation: All medical record entries made by the Scribe were at my direction and personally dictated by me. I have reviewed the chart and agree that the record accurately reflects my personal performance of the history, physical exam, medical decision making, and the department course for this patient. I have also personally directed, reviewed, and agree with the discharge instructions and disposition.
[2018-10-29 17:53] LABS: BARBITURATES, UR NEGATIVE (NEGATIVE); BENZODIAZEPINES, UR NEGATIVE (NEGATIVE); OPIATES, UR POSITIVE (NEGATIVE); PHENCYCLIDINE, UR NEGATIVE (NEGATIVE)
[2018-10-29 17:54] LABS: SQUAMOUS EPITHIAL 8 /hpf (0-5); URINE BACTERIA RARE (<OCC); URINE BILIRUBIN NEGATIVE (NEGATIVE); URINE BLOOD NEGATIVE (NEGATIVE); URINE CLARITY Hazy (Clear); URINE COLOR Yellow (YELLOW); URINE GLUCOSE (UA) NORMAL (Normal); URINE LEUKOCYTE ESTERASE NEG Leu/uL (Negative); URINE PROTEIN NEGATIVE (NEGATIVE); URINE UROBILINOGEN NORMAL mg/dL (0.2-1.0)
--- NOTE | 2018-10-29 19:19 | PCM.BM ---
<Darell Horn - Last Filed: 10/29/18 19:18> Treatment Plan Problems - Problems identified on initial assessmt potential for opiate withdrawal Date Initiated: 10/29/18 Time Initiated: 19:18 Status: Active Treatment assets and liabiliti Patient Assests: ADL independent Patient Liabilities: substance abuse, medical problems - Milieu Protocol Maintain good personal hygiene: daily Encourage regular showers, daily Remind patient to perform daily oral care, daily Assist patient to perform ADL's Conduct patient checks and document Observation sheet: Q15 minutes Maintain personal safety: every shift Educate patient to report safety concerns to staff, every shift Monitor environment for contraband/sharps Medication safety: Monitor for expected outcome, potential side effects: every shift, Assess barriers to learning: every shift, Assess readiness for medication education: every shift <Rosalinda Juan - Last Filed: 10/30/18 11:58> Family Contact Family involvement: Famliy/SO not involved - Goals for Treatment Patient goals for treatment: Complete detox and apply for inpatient rehab. Discharge/Continuing Care - Education Needs Education Needs: Patient Medication, Patient Diagnosis/Disease Process, Patient Coping Skills, Patient Anger Management skills, Patient Placement options, Patient Community resources - Discharge Discharge Criteria: No longer exhibiting s/s of withdrawal, Reduction of target symptoms Discharge to:: Substance Abuse Rehab - Treatment Team Participation Patient/Family/SO Statement: 10/30/18 11:56 "i'm homeless but I don't know what I wanna do yet...I just feel so sick..." Discussed with Family/SO: No Was Patient/Family/SO present at Treatment Team Meeting: Yes
--- NOTE | 2018-10-30 08:18 | PCM.PSYCH ---
Initial Psychiatric Evaluation - Initial Psychiatric Evaluation Type of Admission: Voluntary Legal Status: Capacity Chief Complaint (in patient's own words): "Im sick from Methadone because I havent been able to go to the clinic" History of Present Illness and Precipitating Events: Patient seen, chart reviewed, case discussed HPI: Patient is a 53-year-old single, unemployed, homeless -[place] female with two children, ages 10 and 15 (not with her). The patient states that she sometimes stays with the children and their father, but does not have a home. 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 The patient started using heroin 5 years ago, snorting 1 bundle per day, with her last use four days ago. The patient admits to smoking cocaine every day for the past 60 days and smokes 1 pack per day for a long time. The patient denies any marijuana, alcohol or other drug use. The patient has been to detox 2 times in the past, most recently a couple months ago, but has never been to rehab. The patient was started on Methadone at a clinic about 3 months ago, but is unsure of her longest period of sobriety. She last used methadone 5 days ago and 82 mg. The patients mother is an alcoholic and her sister uses heroin. The patient is HIV+ but is inconsistent with her medications. Past Psych History: Depression and anxiety Family Psych History: denies Past Medical History: HTN, HIV+ Current Medications: Active Medications Generic Name Dose Route Start Last Admin Trade Name Freq PRN Reason Stop Dose Admin Clonidine HCl 0.1 mg 10/30/18 03:56 10/30/18 05:40 Catapres PO 0.1 mg Q6 PRN Administration COWS = 5 or more Dicyclomine HCl 10 mg 10/30/18 00:17 Bentyl PO Q6 PRN Muscle spasm Hydroxyzine HCl 50 mg 10/29/18 23:01 10/30/18 05:40 Atarax PO 50 mg Q6 PRN Administration Anxiety Ibuprofen 600 mg 10/29/18 23:02 10/30/18 05:36 Motrin Tab PO 600 mg TID PRN Administration Pain, moderate (4-7) Losartan Potassium 50 mg 10/30/18 10:00 Cozaar PO DAILY ALEKSANDAR Trazodone HCl 50 mg 10/29/18 22:00 10/29/18 22:54 Desyrel PO 50 mg HS PRN Administration Sleep Past Psychiatric History - Past Psychiatric History Previous Treatment History: None Pertinent Medical Hx (Current Medical&Sleep Prob, Allergies): Allergies Allergy/AdvReac Type Severity Reaction Status Date / Time FISH Allergy RASH Verified 10/29/18 15:51 seafood Allergy Uncoded 10/29/18 15:51 Emtricita/Rilpivirine/Tenof Df [Complera Tablet] 1 tab DAILY 03/13/16 Losartan [Cozaar] 100 mg PO DAILY #30 tab 03/01/17 Losartan [Cozaar] 100 mg PO DAILY #30 tab 04/24/18 traZODone [Desyrel] 50 mg PO HS PRN #30 tab 04/24/18 Review of Systems - Psychiatric Psychiatric: Abnormal Sleep Pattern, Anhedonia, Anxiety, Behavioral Changes, Change in Appetite, Depression, Difficulty Concentrating, Panic Attacks. absent: Confusion, Hallucinations, Homicidal Ideation, Paranoia, Suicidal Ideation Mental Status Examination - Personal Presentation Personal Presentation: Looks older than stated age - Affect Affect: Broad - Motor Activity Motor Activity: Psychomotor Agitation (mild, due to wdw) - Reliability in Providing Information Reliability in Providing Information: Poor, due to altered mood - Speech Speech: Organized - Mood Mood: Depressed, Anxious - Formal Thought Process Formal Thought Process: No Impairment - Cognitive Functions Orientation: Person, Place, Situation, Time Sensorium: Drowsy Attention/Concentration: Attentive Judgement: Intact, as evidence by: Insight regarding need for hospitalization Memory: Recent intact, as evidence by: Ability to recall events of the day, Remote intact, as evidenced by: Abilit to recall sig. life events - Risk Risk: Withdrawal, Diminished functioning - Strength & Assets Inventory Strength & Assets Inventory: Cooperative - Limitations Limitations: Living alone, Other DSM 5 DX - DSM 5 DSM 5 Diagnosis: Opioid withdrawal Opioid use d/o--severe Cocaine use d/o--severe Depression, unspecified HIV - Recommended/Plan of Treatment Treatment Recommendations and Plan of Treatment: Taper with Methadone - she agreed with the schedule, starting from 40 mg and down Gabapentin for augmentation if needed Remeron for depression and insomnia As needed medication All risks, benefits and alternatives of the meds discussed and the patient agreed and understood Attend groups and activities Supportive therapy and psychoeducation [place] for abstinence CBT for relapse prevention Encourage MAT Refer to rehab or IOP, and self-help groups Teach healthy lifestyle methods, i.e. diet, exercise, meditation Smoking cessation with PR Nicotine patch if needed Will hold off HIV med for now, until she makes a decision about it (non- compliant) 33 min Projected ELOS: 5 days - Smoking Cessation Smoking Cessation Initiated: Yes
[2018-10-30] MEDS ORDERED: Aluminum Hydroxide/Magnesium Hydroxide Susp (30 mL) PO PRN (09:57)
--- NOTE | 2018-10-31 11:15 | PCM.PYCHPN ---
Psychiatric Progress Note - Psychiatric Progress Note Patient seen today, length of contact: 15 min Patient Chief Complaint: I am feeling little better Problems Identified/Issues Discussed: Patient seen and evaluated, chart reviewed and discussed with the nurse. Pt reports some improvement in mood, and anxiety. Pt still reports withdrawal symptoms, including nausea, joint pains, cramps, sweating, headaches, and anxiety. Patient is compliant with medications and denies any side effects. Symptoms are improving but pt needs more time to stabilize. Support and psychoeducation given. Medication Change: Yes Medical Record Reviewed: Yes Mental Status Examination - Cognitive Function Orientation: Person, Place, Situation, Time Memory: Intact Attention: WNL Concentration: Poor Association: WNL Fund of Knowledge: Poor - Mood Mood: Depressed, Anxious - Affect Affect: Broad - Speech Speech: Soft - Formal Thought Process Formal Thought Process: No Impairment - Suicidal Ideation Suicidal Ideation: No - Homicidal Ideation Homicidal Ideation: No Goal/Treatment Plan - Goal/Treatment Plan Need for Continued Stay: Severe functional impairment Progress Toward Problem(s) and Goals/Treatment Plan: Opioid withdrawal Opioid use d/o--severe Cocaine use d/o--severe Depression, unspecified HIV Taper with Methadone - she agreed with the schedule, starting from 40 mg and down Gabapentin for augmentation if needed Remeron for depression and insomnia As needed medication All risks, benefits and alternatives of the meds discussed and the patient agreed and understood Attend groups and activities Supportive therapy and psychoeducation MS for abstinence CBT for relapse prevention Encourage MAT Refer to rehab or IOP, and self-help groups Teach healthy lifestyle methods, i.e. diet, exercise, meditation Smoking cessation with MS Nicotine patch if needed
[2018-11-01 08:14] VITALS: BP 113/83; PULSE 81; RESP 20; TEMP 98.4; O2SAT 99
--- NOTE | 2018-11-01 12:40 | PCM.PYCHDC ---
Mental Status Examination - Mental Status Examination Orientation: Person, Place, Situation, Time Memory: Intact Mood: Neutral Affect: Other (Appropriate) Speech: Appropriate Attention: WNL Concentration: WNL Association: WNL Fund of Knowledge: WNL Formal Thought Process: No Impairment Description of patient's judgement and insight: Poor Psychotic Thoughts and Behaviors: None Suicidal Ideation: No Current Homicidal Ideation?: No Discharge Summary - Discharge Note Reason for Hospitalization: Opioid use disorder severe Cocaine use disorder severe Depressive disorder unspecified Laboratory Data: Reviewed Consultations:: List each consultation separately and include: 1. Reason for request. 2. Findings. 3. Follow-up Summary of Hospital Course include:: 1. Description of specific treatment plan utilized for patients during their course of treatmen. 2. Summarize the time- course for resolution of acute symptoms and/or regressed behaviors. 3. Describe issues identified and worked on during hospitalization. 4. Describe medication utilized. 5. Describe medical problems identified and treated. 6. Reassessment of suicide risk Summary of Hospital Course: Patient seen, chart reviewed, case discussed HPI: Patient is a 53-year-old single, unemployed, homeless -[place] female with two children, ages 10 and 15 (not with her). The patient states that she sometimes stays with the children and their father, but does not have a home. 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 The patient started using heroin 5 years ago, snorting 1 bundle per day, with her last use four days ago. The patient admits to smoking cocaine every day for the past 60 days and smokes 1 pack per day for a long time. The patient denies any marijuana, alcohol or other drug use. The patient has been to detox 2 times in the past, most recently a couple months ago, but has never been to rehab. The patient was started on Methadone at a clinic about 3 months ago, but is unsure of her longest period of sobriety. She last used methadone 5 days ago and 82 mg. The patients mother is an alcoholic and her sister uses heroin. The patient is HIV+ but is inconsistent with her medications. Past Psych History: Depression and anxiety Family Psych History: denies Past Medical History: HTN, HIV+ During her stay in the hospital patient was treated with methadone taper for opioid withdrawal symptoms. Patient was also treated with other medications including as needed medications. Patient started feeling better. Today patient was asking for discharge from the hospital. Education provided about completion of the detox. Patient understood and agreed to stay. Later patient was found smoking cigarette on the unit. As patient already signed that if they found smoking cigarettes on the unit they may be discharged from the hospital, patient was discharged administratively. At the time of evaluation and discharge, patient was calm and cooperative, awake, alert and oriented x3, had no delusions, no auditory or visual hallucinations, no suicidal ideations or homicidal ideations. Patient will go to [facility] for follow-up care as planned. - Final Diagnosis (DSM 5) Condition upon Discharge: STABLE Disposition: HOME/ ROUTINE Follow-up Treatment Plan: [facility] - Smoking Cessation Smoking Cessation Medication prescribed: Yes - Antipsychotic Medications Pt discharged on 2 or more routine antipsychotic medications: No
== END 2018-11-01 12:02 | disposition home or self-care (01) | DRG 745 ==
LOC: C.ER 15:39 → C.7D 19:09
PROVIDERS: ADMIT Psychiatry & Neurology Psychiatry; ATTEND Psychiatry & Neurology Psychiatry
PROC: GZ56ZZZ Individual Psychotherapy, Supportive (ICD-10-PCS; principal; 2018-10-29)
DX: F11.23 Opioid dependence with withdrawal (principal); F17.200 Nicotine dependence, unspecified, uncomplicated; F41.9 Anxiety disorder, unspecified; G47.00 Insomnia, unspecified; I10 Essential (primary) hypertension; Z59.0 Homelessness; F32.9 Major depressive disorder, single episode, unspecified; F14.10 Cocaine abuse, uncomplicated